=== PATIENT | female | born 1990 | race Caucasian/White ===

== ENCOUNTER 2022-07-18 11:30 | Outpatient (CLI) | payer OTHER, SELFPAY | END 2022-07-18 12:20 | disposition home or self-care (01) | LOC: WPOUT 11:41 | PROVIDERS: Referring Provider Registered Nurse; Visit Provider Registered Nurse | DX: O92.79 Other disorders of lactation (principal) | CPT/HCPCS: 96158; 96159 ==

== ENCOUNTER → 2022-08-20 | Outpatient (CLI) | payer OTHER, SELFPAY | END | disposition home or self-care (01) | PROVIDERS: Referring Provider Urology; Visit Provider Urology | DX: N20.1 Calculus of ureter (principal) | CPT/HCPCS: 82360 ==

== ENCOUNTER → 2023-02-17 | Outpatient (CLI) | payer OTHER, SELFPAY ==
--- NOTE | 2023-02-17 09:25 | US_ITS ---
STUDY: ULTRASOUND BREAST - RIGHT REASON FOR EXAM: Female, 33 years old. History of mastitis. Patient is currently breast-feeding. TECHNIQUE: Axial and longitudinal images of the RIGHT breast were performed with a high resolution ultrasound transducer. # OF IMAGES: 29 COMPARISON: None. FINDINGS: RIGHT Breast: The retroareolar region of the right breast was examined with ultrasound. No sonographic abnormality is seen. There is dense fibroglandular tissue. IMPRESSION: Dense retroareolar fibroglandular tissue. ASSESSMENT CATEGORY: BIRADS Category 1: Negative. A letter regarding these results will be sent to the patient by the facility within 30 days. Electronically Signed: Ha Lowery MD at 11:18 EDT , STUDY: ULTRASOUND BREAST - LEFT REASON FOR EXAM: Female, 33 years old. Mastitis. Patient is currently breast-feeding. TECHNIQUE: Axial and longitudinal images of the LEFT breast were performed with a high resolution ultrasound transducer. # OF IMAGES: 29 COMPARISON: None. FINDINGS: LEFT Breast: The retroareolar region of the breast was examined with ultrasound. There is dense fibroglandular tissue. No sonographic abnormality seen. US/Breast Limited Unilateral IMPRESSION: No sonographic abnormality is seen. ASSESSMENT CATEGORY: BIRADS Category 2: Benign. A letter regarding these results will be sent to the patient by the facility within 30 days. Electronically Signed: Ha Lowery MD at 11:19 EDT ,
== END | disposition home or self-care (01) ==
PROVIDERS: Referring Provider Nurse Practitioner Family; Visit Provider Nurse Practitioner Family
DX: N61.0 Mastitis without abscess (principal)
CPT/HCPCS: 76642

== ENCOUNTER → 2024-02-04 | Outpatient (CLI) | payer OTHER, SELFPAY ==
[2024-02-04 10:56] LABS: Absolute Lymphocyte Count 1.05 X10^3/uL (0.83-4.51); Absolute Neutrophil Count 6.2 X10^3/uL (2.0-7.7); Basophil# 0.03 X10^3/uL; Basophil% 0.4 % (0-1); Eosinophil# 0.02 X10^3/uL; Eosinophils% 0.3 % (0-5); Hematocrit 37.9 % (37-47); Hemoglobin 12.4 g/dL (12.0-15.0); Lymphocyte # 1.05 X10^3/ul (0.83-4.51); Lymphocyte % 13.5 % (19-41); Mean Corp Hgb Conc 32.7 g/dL (32-36); Mean Corpuscular Hgb 28.6 pg (27.0-32.0); Mean Corpuscular Volume 87.5 fL (81-99); Mean Platelet Vol. 9.7 fl (6.2-12.0); Monocyte# 0.46 X10^3/uL; Monocyte% 5.9 % (0-10); NRBC Flagged by Analyzer 0 % (0-5); Neutrophil # 6.17 X10^3/uL (2.7-7.7); Neutrophil % 79.4 % (47-70); Platelet Count 214 K/mm3 (150-450); RBC Distribution Width CV 12.9 % (11.6-14.6); RBC Distribution Width SD 41.1 fl (35.1-43.9); Red Blood Count 4.33 M/mm3 (4.2-5.4); White Blood Count 7.8 K/mm3 (4.4-11.0)
[2024-02-04 12:00] LABS: HIV - WCH Non-Reactive (Nonreactive); Hepatitis B Surface Antigen Non-Reactive (Nonreactive); Hepatitis C Antibody Non-Reactive (Nonreactive); Rubella IgG Reactive (Nonreactive); Syphilis Antibodies Non-reactive
[2024-02-07 22:07] LABS: Chlamydia By Nucleic Acid AMP Negative (Negative); Gonococcus By Nucleic Acid AMP Negative (Negative)
== END | disposition home or self-care (01) ==
LOC: LAB 10:10 → LABSPEC 16:26
PROVIDERS: PCP Student in an Organized Health Care Education/Training Program; Referring Provider Registered Nurse; Visit Provider Registered Nurse
DX: Z34.90 Encounter for supervision of normal pregnancy, unspecified, unspecified trimester (principal)
CPT/HCPCS: 36415; 85025; 86703; 86762; 86780; 86803; 86850; 86900; 86901; 87086; 87340; 87491; 87591

== ENCOUNTER → 2024-03-27 | Outpatient (CLI) | payer OTHER, SELFPAY ==
[2024-03-27 09:54] LABS: Protein, Urine (Random) 13.5 mg/dL (<11.9); Protein:Creat Ratio 64 mg/g CRE (0-200)
[2024-03-27 10:19] LABS: ALB/GLOB Ratio 0.8 RATIO (0.9-2.4); AST(SGOT) 15 U/L (15-37); Alanine Aminotransfer ALT/SGPT 14 U/L (13-56); Albumin, Serum 3.1 g/dL (3.2-5.0); Alkaline Phosphatase 76 U/L (45-117); Anion Gap 6 (5-15); BUN 9 mg/dL (7-18); BUN/Creat Ratio 11.6 RATIO (10-20); Calcium,Total 9.1 mg/dL (8.5-10.1); Chloride 106 mmol/L (98-107); Creatinine, Serum 0.78 mg/dL (0.55-1.02); EST Glomerular Filtration Rate 89 mL/min (>60); Est Glom Filt Rate - Afr Amer 108 mL/min (>60); Globulin 4.1 g/dL (2.2-4.2); Glucose 90 mg/dL (74-106); Potassium 3.7 mmol/L (3.5-5.1); Protein, Total 7.2 g/dL (6.4-8.2); Sodium Level 138 mmol/L (136-145)
== END | disposition home or self-care (01) ==
LOC: LAB 09:16
PROVIDERS: Registered Nurse; PCP Student in an Organized Health Care Education/Training Program; Referring Provider Obstetrics & Gynecology; Visit Provider Obstetrics & Gynecology
DX: N18.9 Chronic kidney disease, unspecified (principal)
CPT/HCPCS: 36415; 80053; 82570; 84156

== ENCOUNTER → 2024-05-31 | Outpatient (CLI) | payer OTHER, SELFPAY ==
[2024-05-31 11:09] LABS: Absolute Lymphocyte Count 1.21 X10^3/uL (0.83-4.51); Absolute Neutrophil Count 8.3 X10^3/uL (2.0-7.7); Basophil# 0.03 X10^3/uL; Basophil% 0.3 % (0-1); Eosinophil# 0.05 X10^3/uL; Eosinophils% 0.5 % (0-5); Hematocrit 33.4 % (37-47); Hemoglobin 10.6 g/dL (12.0-15.0); Lymphocyte # 1.21 X10^3/ul (0.83-4.51); Mean Corp Hgb Conc 31.7 g/dL (32-36); Mean Corpuscular Hgb 28.3 pg (27.0-32.0); Mean Corpuscular Volume 89.3 fL (81-99); Mean Platelet Vol. 10.2 fl (6.2-12.0); Monocyte# 0.42 X10^3/uL; Monocyte% 4.2 % (0-10); NRBC Flagged by Analyzer 0 % (0-5); Neutrophil # 8.29 X10^3/uL (2.7-7.7); Neutrophil % 82.4 % (47-70); Platelet Count 220 K/mm3 (150-450); RBC Distribution Width CV 13.3 % (11.6-14.6); RBC Distribution Width SD 43.6 fl (35.1-43.9); Red Blood Count 3.74 M/mm3 (4.2-5.4); White Blood Count 10.1 K/mm3 (4.4-11.0)
[2024-05-31 11:45] LABS: Glucose Challenge Gest 1H 50g 113 mg/dL (70-140)
[2024-05-31 11:48] LABS: HIV - WCH Non-Reactive (Nonreactive); Syphilis Antibodies Non-reactive
== END | disposition home or self-care (01) ==
LOC: BWCLAB 09:03
PROVIDERS: Advanced Practice Midwife; PCP Student in an Organized Health Care Education/Training Program; Referring Provider Obstetrics & Gynecology; Visit Provider Obstetrics & Gynecology
DX: O09.90 Supervision of high risk pregnancy, unspecified, unspecified trimester (principal); Z13.1 Encounter for screening for diabetes mellitus
CPT/HCPCS: 36415; 82950; 85025; 86703; 86780

== ENCOUNTER → 2024-07-31 | Outpatient (CLI) | payer OTHER, SELFPAY ==
[2024-07-31 12:20] LABS: Absolute Lymphocyte Count 1.19 X10^3/uL (0.83-4.51); Absolute Neutrophil Count 8.5 X10^3/uL (2.0-7.7); Basophil# 0.03 X10^3/uL; Basophil% 0.3 % (0-1); Eosinophil# 0.03 X10^3/uL; Eosinophils% 0.3 % (0-5); Hematocrit 32.6 % (37-47); Hemoglobin 10.3 g/dL (12.0-15.0); Lymphocyte # 1.19 X10^3/ul (0.83-4.51); Lymphocyte % 11.5 % (19-41); Mean Corp Hgb Conc 31.6 g/dL (32-36); Mean Corpuscular Hgb 28.3 pg (27.0-32.0); Mean Corpuscular Volume 89.6 fL (81-99); Mean Platelet Vol. 10.4 fl (6.2-12.0); Monocyte# 0.53 X10^3/uL; Monocyte% 5.1 % (0-10); NRBC Flagged by Analyzer 0 % (0-5); Neutrophil # 8.52 X10^3/uL (2.7-7.7); Neutrophil % 82.2 % (47-70); Platelet Count 198 K/mm3 (150-450); RBC Distribution Width CV 13.7 % (11.6-14.6); RBC Distribution Width SD 44.9 fl (35.1-43.9); Red Blood Count 3.64 M/mm3 (4.2-5.4); White Blood Count 10.4 K/mm3 (4.4-11.0)
== END | disposition home or self-care (01) ==
LOC: BWCLAB 09:45
PROVIDERS: PCP Student in an Organized Health Care Education/Training Program; Visit Provider Obstetrics & Gynecology
DX: O99.019 Anemia complicating pregnancy, unspecified trimester (principal); Z3A.00 Weeks of gestation of pregnancy not specified
CPT/HCPCS: 36415; 85025

== ENCOUNTER → 2024-08-07 | Outpatient (CLI) | payer OTHER, SELFPAY | END | disposition home or self-care (01) | LOC: LABSPEC 10:05 | PROVIDERS: PCP Student in an Organized Health Care Education/Training Program; Referring Provider Advanced Practice Midwife; Visit Provider Advanced Practice Midwife | DX: O09.90 Supervision of high risk pregnancy, unspecified, unspecified trimester (principal); Z3A.00 Weeks of gestation of pregnancy not specified | CPT/HCPCS: 87081 ==

== ENCOUNTER → 2024-08-08 | Outpatient (CLI) | payer OTHER, SELFPAY ==
--- NOTE | 2024-08-08 12:35 | US_ITS ---
PROCEDURE: Transabdominal OB LIMITED WITH BIOMETRICS REASON FOR EXAM: Advanced maternal age COMPARISON: None currently available FINDINGS Number: 1 Position: Cephalic Placental Position: Grade 2 anterior placenta Placental Abnormalities: None. DIMENSIONS: Biparietal Diameter: 8.3 cm/33 weeks and 3 days Head Circumference: 31.1 cm/34 weeks and 5 days Abdominal Circumference: 32.8 cm/36 weeks and 5 days Femur Length: 6.8 cm/34 weeks and 6 days ESTIMATED WEIGHT: 2749 g +/-412 g ESTIMATED WEIGHT PERCENTILE (24+ weeks): 32nd percentile ESTIMATED GESTATIONAL AGE: Baseline: 36 weeks and 4 days By Ultrasound: 35 weeks and 0 days ESTIMATED DATE OF DELIVERY: Baseline: 09/01/2024 By Ultrasound: 09/12/2024 BIOPHYSICAL ASSESSMENT: Amniotic Fluid Volume: Subjectively normal. Amniotic Fluid Index: 8.4 (8-24 cm normal range) Cardiac Motion: 127 beats per minute. (average) Trunk and Limb Motion: Present. MATERNAL ANATOMY: Adnexa: Neither maternal ovary is successfully identified. Cervical Length (if measured): Not well appreciated. US/OB Limited With Biometrics IMPRESSION: 1. Single intrauterine identified in cephalic presentation. 2. heart tones measured at 127 beats per minute. 3. measurements correspond to 35 weeks and 0 days with an BEAR of 5 4. Additional measurements, as above Reading [facility]
== END | disposition home or self-care (01) ==
LOC: US 12:31
PROVIDERS: PCP Student in an Organized Health Care Education/Training Program; Referring Provider Obstetrics & Gynecology; Visit Provider Obstetrics & Gynecology
DX: O09.529 Supervision of elderly multigravida, unspecified trimester (principal); Z3A.00 Weeks of gestation of pregnancy not specified
CPT/HCPCS: 76816

== ENCOUNTER → 2024-08-17 | Outpatient (CLI) | payer OTHER, SELFPAY | END | disposition home or self-care (01) | LOC: LABSPEC 12:15 | PROVIDERS: PCP Student in an Organized Health Care Education/Training Program; Referring Provider Obstetrics & Gynecology; Visit Provider Obstetrics & Gynecology | DX: O09.90 Supervision of high risk pregnancy, unspecified, unspecified trimester (principal); Z3A.00 Weeks of gestation of pregnancy not specified | CPT/HCPCS: 87081 ==

== ENCOUNTER 2024-08-19 21:07 | Emergency (ER) | payer OTHER, SELFPAY ==
[2024-08-19 21:08] VITALS: BP 129/77; PULSE 127; RESP 20; TEMP 36.5; O2SAT 100; BMI 34.2
[2024-08-19] MEDS: 0.9% Normal Saline (1000mL) 1,000 ML 999 ML IV (21:28)
--- NOTE | 2024-08-19 21:31 | EDS_ITS ---
HPI <JENNIFER Nassar - Last Filed: 08/19/24 21:57> History of Present Illness Chief Complaint: Cold Sx Narrative Narrative: Patient is a 34-year-old female with no significant medical history who is currently 38 weeks . Patient is a 5 para 4, patient states that she was having fevers, headaches, feeling short of breath and was diagnosed with influenza A this morning at 9:30 AM. Patient's D[facility] did prescribe Tamiflu. Patient did take Tylenol roughly round 5 PM today, 1000 mg. Patient states that she just feels body aches, she is feeling short of breath and is here for evaluation. PFSH <JENNIFER Nassar - Last Filed: 08/19/24 21:57> [facility] Medical History Well woman exam with routine gynecological exam nipple pain Home Medications ?Medication ?Instructions ?Recorded ?Last Taken ?Type docosahexaenoic acid 200 mg mg PO DAILY 06/11/23 Unkno wn History capsule ( DHA) ferrous sulfate 200 mg (40 mg 65 mg PO DAILY 06/21/24 Unknown History iron) tablet oseltamivir 75 mg capsule (Tamiflu) 75 mg PO DAILY Unknown History Allergy/AdvReac Type Severity Reaction Status Date / Time No Known Allergies Allergy Verified 08/19/24 21:08 Family History Mother Hypertension Uncle Cancer Lukemia Aunt Cancer Pancreatic Grandmother Ovarian cancer Social History adopted: No household members: spouse and children number of children: 4 current occupational status: unemployed 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 pets and animals: Yes pets and animals: dog(s) history of recent travel: Yes ([place] - January, December) details: [place] August out of state: Yes out of country: Yes sexually active: Yes Smoking Status: Never smoker alcohol intake: current alcohol intake frequency: holidays/special occasions only details: Not while substance use type: does not use well-balanced diet: daily or most days caffeine: No eating out: 1-3 times/week during the past year weight has: decreased > 10 lbs what type of physical activity do you participate in: aerobics and weight training frequency: 3-4 times per week duration: 60-90 minutes/day al/orthodoxy: Oriental Orthodox seatbelt use: always do you feel safe at home: Yes additional social history: : Len Stanford ROS <JENNIFER Nassar - Last Filed: 08/19/24 21:57> ROS ED ROS Narrative Constitutional: Negative for weight loss. Positive fever, chills, weakness Eyes: Negative for vision loss, vision change, double vision ENT: Negative for any sore throat, ear pain, congestion Cardiovascular: Negative for any chest pain, tightness, palpitations Respiratory: Negative for any sputum production, hemoptysis, dyspnea on exertion, orthopnea. Positive for cough, dyspnea Gastrointestinal: Negative for any abdominal pain, nausea, vomiting, diarrhea, constipation, blood in stool, blood in vomit : Negative for any urinary frequency, dysuria, retention, blood in urine Muscle skeletal: Negative for any neck pain, back pain. Positive body aches Neurological: Negative for any syncope dizziness. Positive for headache, Skin: Negative for any rashes, itching, abrasions, lacerations Psychiatric: Negative for any depression, anxiety, stress, suicidal ideation, homicidal ideation Hematologic: Negative for any excessive bruising, easy bleeding EXAM <JENNIFER Nassar - Last Filed: 08/19/24 21:57> Physical Exam Narrative Exam Narrative: Vital signs reviewed. Patient is in no obvious distress, patient speaking complete sentences. Patient does seem slightly anxious HEET: Head normocephalic atraumatic, TMs clear bilaterally. Posterior pharynx is clear, moist mucous membranes. Nares clear bilaterally. Neck: Supple with no lymphadenopathy or tenderness. No signs of meningismus. Cardiac: Tachycardic rate no murmurs gallops or rubs, equal peripheral pulses bilaterally. Respiratory: Lungs clear to auscultation bilaterally. No chest tenderness. Abdomen: Soft, nontender, nondistended. No abdominal bruit or pulsatile masses. No hepatosplenomegaly. Abdomen seems proper for 38 weeks . Extremities: No peripheral edema, no signs of gross trauma or deformity. Active full range of motion of all extremities. Neuro: Cranial nerves II through XII intact, no focal neurological deficits. Skin: Clean dry and intact with no rash, purpura, petechiae, vesicles or pustules. Backs/flank: No CVA tenderness, no midline spinal tenderness, no deformity. Psych: Normal mood and affect. No SI, HI or acute psychosis. Const Vital Signs: 08/19/24 21:08 Temperature 97.7 F L Temperature Source Oral Pulse Rate 127 H Respiratory Rate 20 H Blood Pressure 129/77 H Blood Pressure Mean 94 Pulse Ox 100 Oxygen Delivery Method Room Air <Dr. Christiano Helm DO - Last Filed: 08/19/24 22:44> Physical Exam Const Vital Signs: 08/19/24 21:08 Temperature 97.7 F L Temperature Source Oral Pulse Rate 127 H Respiratory Rate 20 H Blood Pressure 129/77 H Blood Pressure Mean 94 Pulse Ox 100 Oxygen Delivery Method Room Air MDM <JENNIFER Nassar - Last Filed: 08/19/24 21:57> MDM Radiography Diagnostic Testing: Clinical Impression(s) from Imaging Studies Chest X-Ray 08/19/24 21:35 IMPRESSION: 1. No acute cardiopulmonary process. 2. Low inspiratory volumes with crowding of the bronchovascular markings. Reading Location: [facility] EKG Sinus tachycardia: Interpretation: Sinus Rhythm Comments: Sinus tachycardia with a rate of 119 bpm, MN interval 116 ms, QRS duration 70 ms, no acute ST elevation, no acute infarct noted. Treatment and Re-Evaluation :: Differential diagnosis includes however is not limited to: Community-acquired pneumonia, sequelae of influenza A, anxiety, PE, ACS or NM Patient slight tachycardic, patient remains unremarkable, patient's oxygen saturation is 100%. Presenting to the emergency department for feeling of shortness of breath, patient was diagnosed with influenza A today. I believe the patient is feeling the sequelae of influenza A such as the body aches headache cough and shortness of breath. Patient will receive IV fluids, patient to take Tylenol. EKG, chest x-ray will be obtained. All radiologic examinations were read, reviewed by the emergency department attending. From these reads, a plan of care will be put in place. heart tones were taken and within normal limits. Patient's EKG, chest x-ray was normal. Patient responded well after fluids. <Dr. Christiano Helm, - Last Filed: 08/19/24 22:44> [facility] MDM Narrative Medical decision making narrative: I have personally performed a face to face assessment of the patient and have reviewed the GANGA Note. I performed a substantive portion of the visit including all aspects of the following. My land findings include: History: Patient presents with shortness of breath that began yesterday. Patient states it began rather suddenly. Patient states she has some aching in her chest. Patient states it is worse with coughing. Patient is approximately 38 weeks . Patient denies any fevers or chills. Patient denies any nausea or vomiting. Patient was diagnosed with influenza A and was started on Tamiflu today. Exam: Vital signs are stable except for tachycardia of 127. Patient is afebrile. Patient is in no acute distress. Oral mucosa is pink and moist. Neck is supple. Trachea is midline. There is no JVD. Heart was regular and tachycardic. Lungs are clear and equal bilaterally. There is good respiratory effort noted. Abdomen is soft. Bowel sounds are normal. There is a gravid uterus. There is no tenderness. Cranial nerves II through XII are intact. There are no focal motor or sensory deficits noted. Medical Decision Making: Differential diagnosis includes dehydration, electro lyte abnormality, pneumonia, bronchitis, and influenza. Chest x-ray will be obtained to assess for pneumonia and bronchitis. CBC will be obtained to assess for leukocytosis and anemia. Basic metabolic profile will be obtained to assess for electrolyte abnormality and renal function. EKG will be obtained to assess for cardiac dysrhythmia and cardiac ischemia. Patient was given IV fluids. EKG was obtained. On my independent interpretation, it showed a sinus tachycardia with a rate of 119. MN interval, QRS interval, and QTc intervals were all normal. Rhodell was normal. There are no acute ST or T wave changes. PA and lateral chest x-ray was obtained. There are 2 views. On my independent interpretation, lung noland are clear. There is normal cardiac silhouette. Bony thorax is normal. There is no acute process noted. Radiologist also interpreted the x-ray and agrees. CBC was reviewed. There is a mild anemia with a hemoglobin of 9.8 and hematocrit 31.0. Platelets were slightly low at 142. Basic metabolic profile was reviewed. Glucose was 137. Remainder was essentially within normal limits. Patient was advised of her findings. Patient was advised that her symptoms are likely related to the influenza A. Patient was instructed to drink plenty of fluids. Patient was instructed to follow-up with her DOUGH RAISER in 3 to 5 days. Patient was instructed to return if worse in any way. Patient understood and was agreeable with the plan. All questions were answered. Radiography Diagnostic Testing: Clinical Impression(s) from Imaging Studies Chest X-Ray 08/19/24 21:35 IMPRESSION: 1. No acute cardiopulmonary process. 2. Low inspiratory volumes with crowding of the bronchovascular markings. Reading Location: [facility] Discharge Plan Triage Chief Complaint: Cold Sx ED Midlevel Provider: Mohsen Khanna ED Provider: Christiano Helm Dx/Rx/DC Orders Clinical Impression: Influenza A, Instructions: ED Influenza (Adult) Prescriptions: No Action DHA 200 mg capsule PO DAILY ferrous sulfate 200 mg (40 mg iron) tablet 65 mg PO DAILY oseltamivir [Tamiflu] 75 mg capsule 75 mg PO DAILY Primary Care Provider: Chucho Otero Referrals: Chucho Otero DO [Primary Care Provider] - Activity Restrictions/Additional Instructions: Continue taking Tamiflu. Maintain hydration, using Tylenol. Follow-up with your D[facility] RAISER. Print Language: Mosotho Disposition Disposition: Home, Self Care
--- NOTE | 2024-08-19 21:35 | RAD_ITS ---
PROCEDURE: CHEST PA AND LATERAL REASON FOR EXAM: Cough TECHNIQUE: Frontal and lateral views of the chest. COMPARISON: None. FINDINGS: Low inspiratory volumes with crowding of the bronchovascular markings. No definite acute pulmonary opacity. No pleural effusion or pneumothorax. The cardiomediastinal silhouette is unremarkable. No acute osseous or soft tissue abnormality. RAD/Chest PA and Lateral IMPRESSION: 1. No acute cardiopulmonary process. 2. Low inspiratory volumes with crowding of the bronchovascular markings. [facility]
--- NOTE | 2024-08-19 21:36 | EKG12_ITS ---
Test Reason : PALPS Blood Pressure : */* mmHG Vent. Rate : 119 BPM Atrial Rate : 119 BPM P-R Int : 116 ms QRS Dur : 70 ms QT Int : 318 ms P-R-T Axes : 38 74 22 degrees QTcB Int : 447 ms Sinus tachycardia Otherwise normal ECG Confirmed by SIRIA MULLER, FELICE ([id number]), writer editor GABE FUENTES ([id number] on 08/21/2024 8:22:54 AM Referred By: Confirmed By: FELICE BEVERLY MD
--- NOTE | 2024-08-19 21:46 | ED.RN ---
NO OLD EKG
[2024-08-19 22:03] LABS: Absolute Lymphocyte Count 0.19 X10^3/uL (0.83-4.51); Absolute Neutrophil Count 4.9 X10^3/uL (2.0-7.7); Basophil# 0.01 X10^3/uL; Basophil% 0.2 % (0-1); Eosinophil# 0.16 X10^3/uL; Eosinophils% 2.8 % (0-5); Hemoglobin 9.8 g/dL (12.0-15.0); Lymphocyte # 0.19 X10^3/ul (0.83-4.51); Lymphocyte % 3.3 % (19-41); Mean Corp Hgb Conc 31.6 g/dL (32-36); Mean Corpuscular Hgb 28.8 pg (27.0-32.0); Mean Corpuscular Volume 91.2 fL (81-99); Mean Platelet Vol. 10.6 fl (6.2-12.0); Monocyte# 0.41 X10^3/uL; Monocyte% 7.2 % (0-10); NRBC Flagged by Analyzer 0 % (0-5); Neutrophil # 4.86 X10^3/uL (2.7-7.7); Neutrophil % 85.6 % (47-70); POSITIVE DIFFERENTIAL YES; Platelet Count 142 K/mm3 (150-450); RBC Distribution Width CV 15.6 % (11.6-14.6); RBC Distribution Width SD 50.8 fl (35.1-43.9); White Blood Count 5.7 K/mm3 (4.4-11.0)
[2024-08-19 22:06] LABS: Anion Gap 7 (5-15); BUN 10 mg/dL (7-18); BUN/Creat Ratio 11.6 RATIO (10-20); Calcium,Total 8.2 mg/dL (8.5-10.1); Chloride 109 mmol/L (98-107); Creatinine, Serum 0.86 mg/dL (0.55-1.02); EST Glomerular Filtration Rate 79 mL/min (>60); Est Glom Filt Rate - Afr Amer 95 mL/min (>60); Glucose 137 mg/dL (74-106); Potassium 3.6 mmol/L (3.5-5.1); Sodium Level 139 mmol/L (136-145)
[2024-08-19 22:48] VITALS: BP 107/65; PULSE 118; RESP 24; TEMP 37.1; O2SAT 100
== END 2024-08-19 22:49 | disposition home or self-care (01) ==
PROVIDERS: Nurse Practitioner; Emergency Provider Emergency Medicine; PCP Student in an Organized Health Care Education/Training Program; Visit Provider Emergency Medicine
DX: O99.513 Diseases of the respiratory system complicating pregnancy, third trimester (principal); J10.1 Influenza due to other identified influenza virus with other respiratory manifestations; Z3A.38 38 weeks gestation of pregnancy
CPT/HCPCS: 71046; 80048; 85025; 93005; 96360; 99282; A4216

== ENCOUNTER 2024-08-26 17:58 | Inpatient (IN) | payer OTHER, SELFPAY ==
[2024-08-26] VITALS (26 sets, daily range): BP systolic 90–151; BP diastolic 54–77; PULSE 75–134; RESP 14–19; TEMP 36.3–36.8; O2SAT 81–99; BMI 33.8
[2024-08-26] MEDS: Lactated Ringers 1,000 ML 999 ML IV ×2 (13:45→22:35)
[2024-08-26 14:05] LABS: Hemoglobin 10.9 g/dL (12.0-15.0); Mean Corpuscular Hgb 29.1 pg (27.0-32.0); Mean Platelet Vol. 10.5 fl (6.2-12.0); Platelet Count 192 K/mm3 (150-450); RBC Distribution Width CV 15.1 % (11.6-14.6); Red Blood Count 3.75 M/mm3 (4.2-5.4); White Blood Count 7.7 K/mm3 (4.4-11.0)
[2024-08-26 14:15] LABS: Protein, Urine (Random) 9.1 mg/dL (<11.9); Protein:Creat Ratio 221 mg/g CRE (0-200)
[2024-08-26 14:40] LABS: AST(SGOT) 37 U/L (15-37); Alanine Aminotransfer ALT/SGPT 42 U/L (13-56); Creatinine, Serum 0.79 mg/dL (0.55-1.02); EST Glomerular Filtration Rate 87 mL/min (>60); Est Glom Filt Rate - Afr Amer 106 mL/min (>60); Estimated Creatinine Clearance 91.32 ml/min; Uric Acid 4.9 mg/dL (2.6-6.0)
[2024-08-26] MEDS: Lactated Ringers 1,000 ML 50 ML IV (18:19)
[2024-08-26] MEDS: Oxytocin 15 Units/NS 250ml 15 UNITS/250 ML IV.SOLN 2 UNITS IV (18:20)
[2024-08-26] MEDS: 0.9% Saline Lock 10 ML Syringe IV (18:26)
--- NOTE | 2024-08-26 18:39 | HP.PCM.OB_ITS ---
HPI - General General Date of Admission: 08/26/24 Date of Service: 08/26/24 HPI Narrative GABE BAILEY, is a 34 F who presents to unit for itching on soles of feet and palms of hands which are worse overnight and decreased movement over the last couple days. liver enzymes were within normal limits. Upon recheck of cervical exam she had made change from 70/-2 to 80/-1 and decision made for admission. Maternal Data Information BEAR Calculator Estimated Delivery Date Method Current WG Current Estimate 09/01/24 LMP (Certain) 39w 1d Final BEAR: 09/01/24 Final BEAR Source: US >20 weeks Gestational age: [address] [facility] Medical History Mastitis associated with History of pre-term labor depression Well woman exam with routine gynecological exam nipple pain Home Medications ?Medication ?Instructions ?Recorded ?Last Taken ?Type docosahexaenoic acid 200 mg 1 mg PO DAILY 08/26/24 History capsule ( DHA) ferrous sulfate 200 mg (40 mg 65 mg PO DAILY 06/21/24 08/17/24 History iron) tablet Allergy/AdvReac Type Severity Reaction Status Date / Time No Known Allergies Allergy Verified 08/24/24 09:03 Family History Mother Hypertension Uncle Cancer Lukemia Aunt Cancer Pancreatic Grandmother Ovarian cancer Surgical History (Updated 08/26/24 @ 17:32 by Noemy Cartwright) Hx of tonsillectomy Social History adopted: No household members: spouse and children number of children: 4 current occupational status: unemployed 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 pets and animals: Yes pets and animals: dog(s) history of recent travel: Yes ([place] - January, December) details: [place] out of state: Yes out of country: Yes sexually active: Yes Smoking Status: Never smoker alcohol intake: current alcohol intake frequency: holidays/special occasions only details: Not while substance use type: does not use well-balanced diet: daily or most days caffeine: No eating out: 1-3 times/week during the past year weight has: decreased > 10 lbs what type of physical activity do you participate in: aerobics and weight training frequency: 3-4 times per week duration: 60-90 minutes/day al/yazidi: Gnosticism seatbelt use: always do you feel safe at home: Yes additional social history: : Len Stanford History 5 Elective abortions Hx Para 4 Spontaneous abortions Hx # Term Pregnancies 3 Ectopic pregnancies Hx # Pregnancies 1 Multiple births # of living children 4 Past Pregnancies Del. Date Name GA/Weeks Outcome Route Bth Weight Gen Labor Lgth Anesthesia Del Locatn Provider FOB 05/12/16 Kendra 40 live - full term 7lbs 3oz Female ep idural [facility] 09/03/17 Camacho 36 live - 5lbs 15oz Male non e [facility] 05/22/19 Victorino 39 live - full term 7lbs 13oz Male n one [facility] 07/14/22 Matlida 39 live - full term 7lbs 9oz Female none [facility] Delivery Date: 09/03/17 Last Updated by: Inge Johnston RN Spotting throughout , bleeding led to early delivery Visit Details Expected Delivery Route/Plan Labor Preferences- CB/BF classes: [] labor support person: [] labor intervention preferences: [] pain management options preferred: [] cut cord/dad catch: [] : [] PP control planned: [] discussed possible routes of delivery and associated risks: [] special requests: [] Plans Covid status: [] Flu vaccine: declined Tdap vaccine: declined Rhogam: na LARC form signed: [] Problem list reviewed and updated with the most current plan of care details and appropriate orders placed. Relevant counseling for the gestational age provided. Continue routine care and follow up unless otherwise noted in visit notes/problem list details OB Flowsheet Initial Weight: 130 lb Date -?-?-?-?-?-?-?-?-?-?-?-?- EGA Weight BP Urine Prot -?-?-?-?-?-?-?-?-?-?-?-?- Glucose FHR FuHt Pres Dilation -?-?-?-?-?-?-?-?-?-?-?-?- Effaced St Visit Note 02/04/24 -?-?-?-?-?-?-?-?-?-?-?-?- 10w 0d 130 lb 2 oz (+2 oz) 100/62 -?-?-?-?-?-?-?-?-?-?-?-?- 160 -?-?-?-?-?-?-?-?-?-?-?-?- LC- CRL 31.3 con with LMP. declines nipt. 20mm SPENSER noted. 03/03/24 -?-?-?-?-?-?-?-?-?-?-?-?- 14w 0d 131 lb (+16 oz) 110/58 Negative -?-?-?-?-?-?-?-?-?-?-?-?- Negative 150 -?-?-?-?-?-?--?-?-?-?-?-?- SM- no vb crmapi ng ordered [employer] kidney labs. states she had kidney stones so that may have impacted values 03/27/24 -?-?-?-?-?-?-?-?-?-?-?-?- 17w 3d 135 lb (+5 lb) 109/71 -?-?-?-?-?-?-?-?-?-?-?-?- 150 -?-?-?-?-?-?-?-?-?-?-?-?- KW- no vb/crampi ng. no movement yet. US scheduled. 05/01/24 -?-?-?-?-?-?-?-?-?-?-?-?- 22w 3d 142 lb (+12 lb) 102/51 Negative -?-?-?-?-?-?-?-?-?-?-?-?- Negative 145 22 -?-?-?-?-?-?-?-?-?-?-?-?- kw- no vb/lof/ct x. good fm. US reviewed. 28 week labs discussed. 05/31/24 -?-?-?-?-?-?-?-?-?-?-?-?- 26w 5d 151 lb (+21 lb) 108/67 Negative -?-?-?-?-?-?-?-?-?-?-?-?- Negative 135 26 -?-?-?-?-?-?-?-?-?-?-?-?- JV- no lof, vagi nal bleeding, or dec fm. 28 week labs were done today and pending. she has some cramping but she states that she knows she is not drinking enough water. 06/21/24 -?-?-?-?-?-?-?-?-?-?-?-?- 29w 5d 161 lb (+31 lb) 107/62 Trace -?-?-?-?-?-?-?-?-?-?-?-?- Negative 140 30 -?-?-?-?-?-?-?-?-?-?-?-?- Sm- no vb lof go od fm nor euglar ctx 07/04/24 -?-?-?-?-?-?-?-?-?-?-?-?- 31w 4d 161 lb 8 oz (+31 lb 8 oz) 97/65 Negative -?-?-?-?-?-?-?-?-?-?-?-?- Negative 140 33 -?-?-?-?-?-?-?-?-?-?-?-?- KW- no vb/lof/ct x. good fm. no concerns. declines tdap. LARC done. 07/19/24 -?-?-?-?-?-?-?-?-?-?-?-?- 33w 5d 169 lb (+39 lb) 115/75 Negative -?-?-?-?-?-?-?-?-?-?-?-?- Negative 131 34 -?-?-?-?-?-?-?-?-?-?-?-?- JV- no complaint s other than bill from [facility]. ordering growth scan. 07/31/24 -?-?-?-?-?-?-?-?-?-?-?-?- 35w 3d 171 lb 8 oz (+41 lb 8 oz) 104/61 Negative -?-?-?-?-?-?-?-?-?-?-?-?- Negative 135 35 -?-?-?-?-?-?-?-?-?-?-?-?- SM- no vb lof go od fm nor euglar ctx 08/07/24 -?-?-?-?-?-?-?-?-?-?-?-?- 36w 3d 173 lb 6 oz (+43 lb 6 oz) 110/76 Trace -?-?-?-?-?-?-?-?-?-?-?-?- Negative 145 36 Cephalic 2 -?-?-?-?-?-?-?-?-?-?-?-?- 60 -2 KW- no vb/ lof/ctx. good fm. US tomorrow. GBS today. 08/17/24 -?-?-?-?-?-?-?-?-?-?-?-?- 37w 6d 175 lb 8 oz (+45 lb 8 oz) 100/69 Negative -?-?-?-?-?-?-?-?-?--?-?-?- Negative 125 37 Cephalic 2 -?-?-?-?-?-?-?-?-?-?-?-?- 70 -2 KW- no vb/ lof/ctx. good fm. GBS redone today. discussed labor precautions. 08/24/24 -?-?-?-?-?-?-?-?-?-?-?-?- 38w 6d 177 lb 6 oz (+47 lb 6 oz) 132/55 Negative -?-?-?-?-?-?-?-?-?-?-?-?- Negative 125 38 Cephalic -?-?-?-?-?-?-?-?-?-?-?-?- SM- recovering f rom flu a no vb lof good fm n oreuglar ctx five days out, reviewed kick counts and fluid status NST FHR Rate Baby A Baseline: 135 Variability:: Moderate Accelerations:: 15 x 15 Decelerations:: None NST Reactive:: Yes FHR Category:: Category I Uterine Activity:: 5-6 minutes ROS Constitutional Constitutional: Denies change in weight, fatigue, fever(s), headache(s), poor appetite or weakness Eyes Eyes: Denies blurry vision, change in vision, floaters, seeing flashes or spots in vision ENT HEENT: Denies dizziness, headache(s), loss taste/smell or sore throat Cardiovascular Cardiovascular: Denies chest pain, dizziness, dyspnea, irregular heart rhythm, lightheadedness, palpitations or rapid heart rate Respiratory/Chest Respiratory/Chest: Denies change in mental status, chest tightness, cough, dyspnea or breast pain Gastrointestinal Gastrointestinal: Denies anorexia, chewing difficulty, constipation, diarrhea or weight changes Genitourinary Genitourinary: Denies difficulty urinating, dysuria, flank pain, genital pain, urinary frequency or urinary urgency Musculoskeletal Musculoskeletal: Denies back pain, difficulty walking, extremity pain, joint pain, muscle cramps or muscle weakness Integumentary Integumentary: Denies lesions or unusual bruising Neurologic Neurologic: Denies abnormal movements, abnormal speech, dizziness, numbness, seizure-like activity, syncope or weakness Psychiatric Psychiatric: Denies behavioral changes, change in appetite, confusion, depression, homicidal ideation, suicidal ideation or suicidal thoughts Endocrine Endocrinology: Denies excessive sweating, polydipsia or polyuria Hematologic/Lymphatic Hematologic/Lymphatic: Denies anemia Allergic/Immunologic Allergic/Immunologic: Denies itchy eyes, lip swelling, throat swelling, tongue swelling or wheezing Vital Signs Vital Signs Vital Signs: 08/26/24 12:54 08/26/24 12:54 08/26/24 12:54 Pulse Rate 96 93 Blood Pressure 151/66 H BP Systolic 151 BP Diastolic 66 Pulse Ox 08/26/24 12:54 08/26/24 12:59 08/26/24 12:59 Pulse Rate 88 Blood Pressure BP Systolic BP Diastolic Pulse Ox 97 96 08/26/24 13:04 08/26/24 13:04 08/26/24 13:10 Pulse Rate 93 Blood Pressure 116/71 BP Systolic 116 BP Diastolic 71 Pulse Ox 97 08/26/24 13:10 Pulse Rate 84 Blood Pressure BP Systolic BP Diastolic Pulse Ox Weight Weight: 173 lb 6.4 oz Body Mass Index (BMI) 33.8 Physical Exam Const alert, oriented x3 and no apparent distress General Appearance: cooperative Orientation / Consciousness: awake HEENT normocephalic Neck full ROM Lymph Lymphatic: no lymphadenopathy noted Chest inspection of chest normal Resp normal respiratory effort and normal air movement Effort and Inspection: able to speak in complete sentences and symmetric chest movement GI soft to palpation and non-tender Inspection: gravid Palpation: soft; Negative for tender external exam normal Back/Spine normal to inspection Extremity normal to inspection and full ROM Skin no rashes or lesions noted Psych mental status grossly normal Appearance: grossly normal Speech: normal speech Labs Labs Labs: Blood Type O POSITIVE Antibody Screen NEGATIVE Hct 33.0 % (37-47) L Hgb 10.9 g/dL (12.0-15.0) L Obstetrics Ultrasound Syphilis Total Ab Non-reactive Rubella IgG Antibody Reactive (Nonreactive) Hep Bs Antigen Non-Reactive (Nonreactive) Hepatitis C Antibody Non-Reactive (Nonreactive) Chlamydia DNA (GINNA) Negative (Negative) N.gonorrhoeae DNA (GINNA) Negative (Negative) HIV 1&2 Antibody Non-Reactive (Nonreactive) Glucose 1 Hr 50 gm 113 mg/dL (70-140) Assessment & Plan (1) Active labor: PLAN: Patient presents IAL, plan expectant management for , pitocin/AROM PRN if needed. Pain management: plans no epidural. GBS neg Management of any complications: none I have reviewed the [facility] and made any clinically relevant updates. Dr Dhillon aware of admission, assessment and plan. Agrees with above (2) Anemia affecting : COMMENT: po iron. recheck end of jun (3) AMA (advanced maternal age) multigravida 35+: COMMENT: genetic counseling provided and declined. plan 36 week growth US delivery by 40 weeks (4) Supervision of high-risk : COMMENT: PRR , BEAR 09/01, surprise PC: Doug Gardner Graham & Susan, : Len (5) H/O delivery, currently : COMMENT: Delivered 2nd baby @ 36wks d/t bleeding (2018) (6) : QUALIFIERS: Weeks of gestation: 37 weeks Qualified Code(s): Z3A.37 - 37 weeks gestation of COMMENT: GBS neg, Declined genetic/carrier testing, normal anatomy (7) Chronic kidney disease: COMMENT: CMP and urine pr cr ratio baseline added to NOB labs. Charges/Coding Multi Select Codes Urinary/Genital Urinary/Genital CPT Codes: No Charge
[2024-08-26 20:29] LABS: Syphilis Antibodies Non-reactive
[2024-08-26] MEDS: fentaNYL-bupivacaine (epidural) 100 ML BAG EPIDURAL (22:30)
[2024-08-26] MEDS: Acetaminophen 500 MG Tablet PO (22:56)
--- NOTE | 2024-08-26 23:24 | PN_ITS ---
Progress Note comfortable with epidural current tracing: FHT: 135 Moderate variability reactive no decelerations category I tracing [place]: IUPC placed Pitocin: 8mu Membranes:Ruptured for clear at 2318 SVE:4.5/80/-2 A/P: Continue with position changes Titrate pitocin per protocol Epidural per anesthesia GBS neg Anticipate Dr Dhillon aware of above assessment and agrees with plan of care Assessment & Plan Assessment/Plan (1) Active labor: (2) Influenza A: (3) Anemia affecting : (4) AMA (advanced maternal age) multigravida 35+: (5) Supervision of high-risk : (6) H/O delivery, currently : (7) : QUALIFIERS: Weeks of gestation: 37 weeks Qualified Code(s): Z3A.37 - 37 weeks gestation of (8) Chronic kidney disease: Multi Select Codes Urinary/Genital Urinary/Genital CPT Codes: No Charge
[2024-08-27] VITALS (14 sets, daily range): BP systolic 93–119; BP diastolic 48–70; PULSE 75–128; RESP 14–20; TEMP 36.3–37; O2SAT 96–98
[2024-08-27] MEDS: Lactated Ringers 1,000 ML 200 ML IV (00:49)
--- NOTE | 2024-08-27 01:29 | EX.PCM.OBVAG ---
Assessment & Plan (1) Vaginal delivery: COMMENT: KW girl IAL 39.1 (2) Anemia affecting : COMMENT: po iron. recheck end of jun (3) AMA (advanced maternal age) multigravida 35+: COMMENT: genetic counseling provided and declined. plan 36 week growth US delivery by 40 weeks (4) Supervision of high-risk : COMMENT: PRR , BEAR 09/01, surprise PC: Doug Gardner Graham & Susan, : Len (5) H/O delivery, currently : COMMENT: Delivered 2nd baby @ 36wks d/t bleeding (2018) (6) : QUALIFIERS: Weeks of gestation: 37 weeks Qualified Code(s): Z3A.37 - 37 weeks gestation of COMMENT: GBS neg, Declined genetic/carrier testing, normal anatomy (7) Chronic kidney disease: COMMENT: CMP and urine pr cr ratio baseline added to NOB labs. Maternal Data Information BEAR Calculator Estimated Delivery Date Method Current WG Current Estimate 09/01/24 LMP (Certain) 39w 2d Final BEAR: 09/01/24 Final BEAR Source: US >20 weeks Gestational age: 39.2 Vaginal Delivery Maternal Presentation Maternal Presentation: Active Labor Maternal Presentation: Presented to unit for active labor Vaginal Delivery Information Procedure Performed: Spontaneous Vaginal Delivery Surgeon/Practitioner: Sallie Finley Date of Procedure: 08/27/24 Pre-Procedure Diagnosis: see problem list Post-Procedure Diagnosis: same Type of anesthesia: Epidural Estimated Blood Loss: 300 Time of Delivery: 01:12 Findings Description of procedure: Progressed well to 10cm dilated and made steady progress with effective maternal pushing. Delivered the head in direct OP presentation. The head was delivered atraumatically and no nuchal cord was identified. The anterior and posterior shoulders delivered without complication followed by the rest of the infant and the infant was placed on the maternal abdomen. Delayed cord clamping was employed for approximately 3 minutes. Cord was clamped and cut and gentle traction was applied to the cord and the placenta delivered spontaneously. Immediately following, it was noted to be intact with a 3 vessel cord. Uterine bleeding stable. The perineum and vagina were inspected and noted to have a first degree laceration which was repaired with 3-0 Vicryl in the usual fashion. EBL was 300cc. Patient and tolerated delivery well. Apgars 8/9. Dr Weeman notified of vaginal delivery and orders reviewed. Physician agrees with current plan of care. Presentation: Vertex Amniotic Membrane Rupture Type: Spontaneous Amniotic Fluid Description: Clear Placental Delivery Description: Spontaneous Placenta Disposition: [facility] Specimen collected: No Cord Vessel Description: 3 Vessels Cord Entanglement: None Infant A Gender: Female (1 minute): 8 (5 minute): 9 Delayed Cord Clamping: Yes [employer] Supervisor ticket writer: No Post Vaginal Deli Medications given after delivery: IV Pitocin Episiotomy Description: None Laceration: 1st degree Complication Complications: No Multi Select Codes Urinary/Genital Urinary/Genital CPT Codes: 94754 Vaginal Delivery [facility]
--- NOTE | 2024-08-27 01:32 | DCINST_ITS ---
Discharge Instructions Diet Discharge Diet: No restrictions DC O2, CPAP, BIPAP needs Home O2 Discharge instructions: No Dressing / Incision Discharge Activity: Return to Normal Activity May resume sexual activity in: 6-8 weeks Dressing / Incision Call your doctor if you observe: Fever of 101 or Higher, Coldness, Increased Pain, Numbness or Tingling, Change in Color, Inability to urinate, Inability to have a bowel movement, Using more than 1 pad per hour, Shortness of breath, Dizziness, Fainting spells, Swelling in the ankles, Chest pain, Increased p alpitations (irregular heartbeat), Calf discomfort and Uncontrolled pain Follow Up Care Please Follow Up With: Sallie Finley CNM When: Please call the office to schedule your follow up appointment in 6 weeks. If you had high blood pressure please call to schedule an appointment in 2 weeks. Test Results: Test results from this visit will be discussed in further detail at your follow- up appointment, if applicable. Discharge Plan Admission Admit Date/Time: 08/26/24 17:58 Attending Provider: Sallie Finley Primary Care Provider: Chucho Otero Discharge Orders/Prescriptions Prescriptions: No Action DHA 200 mg capsule 1 mg PO DAILY ferrous sulfate 200 mg (40 mg iron) tablet 65 mg PO DAILY Referrals / Follow Up: Chucho Otero DO [Primary Care Provider] -
[2024-08-27] MEDS: Oxytocin 15 Units/NS 250ml 15 UNITS/250 ML IV.SOLN 83 UNITS IV (01:50)
[2024-08-27] MEDS: Ibuprofen 600 MG Tablet PO ×3 (05:52→19:36)
[2024-08-27] MEDS: Acetaminophen 500 MG Tablet 1000 MG PO ×2 (07:43→15:55)
[2024-08-27] MEDS: Senna/Docusate Sodium 1 Tablet PO (07:43)
[2024-08-27] MEDS: Sertraline 50 MG Tablet 25 MG PO (12:02)
[2024-08-28 02:03] VITALS: BP 109/71; PULSE 64; RESP 16; TEMP 36.5
[2024-08-28] MEDS: Ibuprofen 600 MG Tablet PO ×2 (02:06→11:16)
[2024-08-28] MEDS: Acetaminophen 500 MG Tablet 1000 MG PO (05:30)
[2024-08-28 09:40] VITALS: BP 114/78; PULSE 82; RESP 16; TEMP 36.6; O2SAT 99
--- NOTE | 2024-08-28 11:09 | PN.OBGYN_ITS ---
Subjective Subjective Patient doing well without complaints. Tolerating PO. Ambulating and voiding without difficulty. Feeding well. Denies chest pain, shortness of breath, calf pain/swelling, fevers, chills, lightheadedness. Objective Data Objective Data Vital Signs: Vital Signs Temp Pulse Resp BP Pulse Ox O2 Del Method 97.8 F 82 16 114/78 99 Room Air 08/28/24 09:40 08/28/24 09:40 08/28/24 09:40 08/28/24 09:40 08/28/24 09:40 08/28/24 09:40 Oxygen Delivery Method Room Air Weight: 173 lb 6.4 oz Body Mass Index (BMI) 33.8 Intake & Output: Intake and Output for Last 24 Hours 08/26/24 08/27/24 08/28/24 23:59 23:59 23:59 Intake Total 3019.37 / 3019.37 667.30 / 667.30 Output Total 1200 / 1200 Balance 3019.37 / 3019.37 -532.70 / -532.70 Lab / Micro Data 08/26/24 13:45 08/26/24 13:45 ROS Constitutional Constitutional: Reports systems reviewed and no addt'l complaints, except as documented; Denies anorexia or headache(s) Cardiovascular Cardiovascular: Reports systems reviewed and no addt'l complaints, except as documented; Denies dizziness, dyspnea, nausea or tachypnea Respiratory/Chest Respiratory/Chest: Reports systems reviewed and no addt'l complaints, except as documented; Denies cough, dyspnea, shortness of breath at rest or tachypnea Gastrointestinal Gastrointestinal: Reports systems reviewed and no addt'l complaints, except as documented; Denies abdominal pain, constipation or nausea Genitourinary Genitourinary: Reports systems reviewed and no addt'l complaints, except as documented; Denies burning urination, difficulty urinating, dysuria, urinary frequency or urinary incontinence Musculoskeletal Musculoskeletal: Reports systems reviewed and no addt'l complaints, except as documented Integumentary Integumentary: Reports systems reviewed and no addt'l complaints, except as documented Neurologic Neurologic: Reports systems reviewed and no addt'l complaints, except as documented; Denies abnormal speech, dizziness or headache(s) Psychiatric Psychiatric: Reports systems reviewed and no addt'l complaints, except as documented Endocrine Endocrinology: Reports systems reviewed and no addt'l complaints, except as documented Hematologic/Lymphatic Hematologic/Lymphatic: Reports systems reviewed and no addt'l complaints, except as documented Physical Exam Const alert, oriented x3 and no apparent distress Neck full ROM Resp normal respiratory effort, normal air movement and no retractions Effort and Inspection: able to speak in complete sentences and symmetric chest movement GI soft to palpation Bladder / Kidney Exam: bladder normal to palpation Uterus Palpation: uterus fundus firm Extremity normal to inspection and full ROM Psych mental status grossly normal, thought process normal and cooperative Assessment & Plan (1) Vaginal delivery: COMMENT: KW girl IAL 39.1 PLAN: s/p PPD # 1 1. routine post delivery care 2. breast feeding- support given 3. rh positive 4. rubella immune 5. Discharge home (2) Active labor: (3) Anemia affecting : COMMENT: po iron. recheck end of jun (4) AMA (advanced maternal age) multigravida 35+: COMMENT: genetic counseling provided and declined. plan 36 week growth US delivery by 40 weeks (5) Supervision of high-risk : COMMENT: PRR , BEAR 09/01, surprise PC: Doug Gardner Graham & Susan, : Len (6) H/O delivery, currently : COMMENT: Delivered 2nd baby @ 36wks d/t bleeding (2018) (7) : QUALIFIERS: Weeks of gestation: 37 weeks Qualified Code(s): Z 3A.37 - 37 weeks gestation of COMMENT: GBS neg, Declined genetic/carrier testing, normal anatomy (8) Chronic kidney disease: COMMENT: CMP and urine pr cr ratio baseline added to NOB labs. Charges/Coding Multi Select Codes Urinary/Genital Urinary/Genital CPT Codes: No Charge
[2024-08-28] MEDS: Sertraline 50 MG Tablet 25 MG PO (11:16)
--- NOTE | 2024-08-28 11:22 | CASEMGMT ---
Social Work Assessment Labor and Delivery Unit Patient Address: [address] [place] [address] Phone number: [phone] Date of Referral: 08/28/24 Time of Referral:? 614 Referred By: Sallie Finley Date of Intervention: ?08/28/24? Time of Intervention:? 102 Reason for Referral:? hx of ppd Sw completed chart review and acknowledges social work consult due to maternal history of depression. Sw presented to bedside and introduced self to mother of baby (CAITLIN Freeman) and maternal grandma who was present. MOB stated that it was okay to complete assessment with maternal grandma present, MOB agreed. Sw completed psychosocial assessment. History obtained from: medical records, MOB Household composition: Currently residing in the family home is MOB, father of baby (ROSIE Harrington) their four older children: Twin, Doug, Victorino and uSsan. baby to be included in residence when ready for discharge. AGAPITO denies any problems or concerns with housing at this time. Patient's parent/guardian status:? AGAPITO states that she and FOBala have been together for 11 years after meeting at [employer]. MOB denies problems or concerns with domestic violence or intimate partner violence. ? Medical History: ?AGAPITO is 34 year old female who is 5, para 4- now 5 following labor and delivery of . AGAPITO received routine care during with [facility]. AGAPITO presented to hospital and delivered baby via vaginal delivery at 39 weeks gestation on 08/27/24. Baby girl, named Tello, was born weighing 7lb 2oz with apgars of 8 and 9 at one and five minutes of life, respectfully. AGAPITO is bottle feeding baby and reports baby will be followed by Dr. Reza for pediatrics. Educational Status:? Both parents graduated from high school. No problems with reading, learning or comprehension. Financial Status: TABITHA is gainfully employed outside of the home for [employer]. 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 Supplies:All necessary baby supplies obtained, including: car seat, safe sleep space, clothes, diapers and wipes. Childcare/Caregiver(s):? AGAPITO states that she will be the baby's primary caregiver, along with FOB when not at work. Transportation:?? No barriers, both parents have their drivers license and reliable means of transportation. Programs/Agencies Involved: ?Parents are not connected to any community resources at this time. ?? Children Services/Legal Issues:??? No history of children services involvement, no issues or concerns warranting referral to be made at this time. Behavioral Health Issues: ??Mental Health History:??TABITHA does not have any mental health diagnoses. AGAPITO states that she has never been diagnosed with anxiety or depression, but has struggled with depression after each delivery of her other children. AGAPITO is prescribed zoloft that she started yesterday to help her manage her mental health symptoms during this period. AGAPITO's prescriber is her OBGYN- [facility]. ? Substance Use History:?MOB denies substance use prior to and during . ? Family History:??MOB denies family history of addiction or significant mental health diagnoses. ??? Drug Screens: No drug screens observed during chart review. Family/Social Stressors:? AGAPITO states that influenza has gone through their house. MOB states that she and the kids all had it, and now TABITHA has it and it is lingering longer than it did with anyone else. TABITHA was able to be present for the delivery, but has not gotten to hold baby yet because he was sick. AGAPITO expresses eagerness to be discharged. Support Systems: AGAPITO states that she has a lot of supports in place, including: FOB, her parents and her sister and TABITHA's parents and two sisters. Depression/Shaken Baby/Safe Sleeping: Sw educated AGAPITO on signs and symptoms of baby blues and depression and anxiety. MOB states that when she experienced depression in the past, she felt a disconnect from the baby and felt withdrawn. MOB states that she is happy to have started the zoloft early this time in an attempt to prevent symptoms during this period. AGAPITO denies feeling sad, depressed, withdrawn or anxious. MOB states that she is feeling really good at this time, is happy that baby is here and is happy. MOB states that TABITHA would be able to recognize if she were struggling with her mental health and would know how to help and support her. ASSESSMENT:? MOB and baby admitted following labor and delivery of . AGAPITO has four other children and reports to experiencing depression in some shape or form following each delivery. MOB states that she feels comfortable talking to FOB or her OBGYN if she is struggling with her mental health during this time. MOB was talkative and engaging throughout completion of assessment. MOB made and maintained eye contact and contributed to conversation as it flowed naturally. MOB has obtained all necessary baby supplies and has natural supports in place. PLAN:?? No other services requested or indicated. MOB and baby to be discharged when medically ready. Parents were provided literature regarding: signs and symptoms of baby blues and mood and anxiety disorders, Help Me Grow, shaken baby prevention, ABCs of safe sleep and a list of county resources that are available for them should any needs present themselves. Judith Aleman, [employer], [employer]
== END 2024-08-28 13:15 | disposition home or self-care (01) | DRG 806 ==
LOC: WPOUT 18:05 → WP 18:05
PROVIDERS: Admitting Provider Advanced Practice Midwife; PCP Student in an Organized Health Care Education/Training Program; Referring Provider Advanced Practice Midwife; Visit Provider Advanced Practice Midwife
DX: O36.8130 Decreased fetal movements, third trimester, not applicable or unspecified (principal); Z37.0 Single live birth; O26.833 Pregnancy related renal disease, third trimester; N18.9 Chronic kidney disease, unspecified; D64.9 Anemia, unspecified; O99.02 Anemia complicating childbirth; O70.0 First degree perineal laceration during delivery; Z3A.39 39 weeks gestation of pregnancy
CPT/HCPCS: 59025; 59050; 82565; 82570; 84156; 84450; 84460; 84550; 85027; 86780; 86850; 86900; 86901; A4216